=== PATIENT | female | born 1940 | race Caucasian/White ===

== ENCOUNTER → 2023-04-16 | Outpatient (CLI) | payer MEDICARE, OTHER ==
[2023-04-16 15:09] LABS: Partial Thromboplastin Time 25.6 sec (22.0-30.0)
[2023-04-16 20:53] LABS: Appearance,Urine Clear (Clear); Bilirubin,Urine Negative (Negative); Blood,Urine Negative (Negative); Color,Urine Yellow (Yellow); Ketones,Urine Negative (Negative); Nitrite,Urine Negative (Negative); Specific Gravity,Urine 1.008 (1.001-1.030); Urobilinogen,Urine 0.2 E.U./DL
[2023-04-16 21:30] LABS: Bacteria,Urine None Seen (None Seen)
[2023-04-16 21:56] LABS: Prothrombin Time 11.1 sec (10.0-12.5)
[2023-04-16 22:15] LABS: HCT 45.6 % (37.2-46.3); HGB 13.7 d/dL (12.0-15.0); MCH 24.9 pg (27.0-32.0); MCV 82.9 FL (80.0-97.0); Mean Platelet Volume 9.8 FL (9.5-12.2); NRBC Per 100 WBC 0 X 10*3/uL (0.00-0.01); Platelet Count 652 X 10*3/uL (140-440); RDW 16.9 % (11.5-14.5); WBC 11.79 X 10*3/uL (4.50-10.00)
[2023-04-17 07:58] LABS: ALT 20 U/L (8-44); AST 38 U/L (13-35); Albumin 4.6 d/dL (3.8-4.9); Albumin/Globulin Ratio 1.64 Ratio (1.60-3.17); Alkaline Phosphatase 120 U/L (41-126); BUN/Creat Ratio 22.22 Ratio (12.00-20.00); Calcium 10.3 mg/dL (8.7-10.3); Carbon Dioxide 25.5 mmol/L (21.6-31.8); Chloride 98 mmol/L (96-109); Globulin 2.8 d/dL (1.6-3.3); Glucose 86 mg/dL (70-110); Potassium 5.5 mmol/L (3.5-5.5); Sodium 135 mmol/L (135-145); Total Bilirubin <0.2 mg/dL (0.3-1.2); Total Protein 7.4 d/dL (6.2-8.2)
== END | disposition home or self-care (01) ==
LOC: LABPAT 13:49
PROVIDERS: ATTEND Orthopaedic Surgery
DX: Z01.812 Encounter for preprocedural laboratory examination (principal); M16.11 Unilateral primary osteoarthritis, right hip
CPT/HCPCS: 80053; 81001; 85027; 85610; 85730; 86850; 86900; 86901; 87070

== ENCOUNTER 2023-04-24 09:20 | Inpatient (IN) | payer MEDICARE, OTHER ==
[2023-04-19 10:19] VITALS: BMI 29.0
[~2023-04-24 09:20] MED LIST: ACETAMINOPHEN TAB 500 MG TAB PO PRN; DEXAMETHASONE SOD PHOSPHATE 4 MG/ML 1 ML VIAL IV ONE; GABAPENTIN 300 MG CAP PO PRN; HYDROmorphone 0.5 MG/0.5 ML SYRINGE IVP PRN; LIDOCAINE 1% (10MG/ML) FOR IV START INTRADERMA PRN; MELOXICAM 7.5 MG TAB PO PRN; ONDANSETRON 4 MG/2 ML VIAL IVP ONE; TRANEXAMIC 1,000 MG/100ML-NACL 1,000 MG in SALINE 1 100ML.BAG IVPB PRN
[2023-04-24] MEDS: LACTATED RINGERS 1,000 ML IV SCH (10:20)
[2023-04-24] MEDS ORDERED: MIDAZOLAM 2 MG/2 ML VIAL IVP ONE (10:37)
--- NOTE | 2023-04-24 10:45 | P.ANPRN ---
Procedure Note - Anesthesia - Nerve Block Performed Right Jovani Single Time Out Performed: Yes Date of Procedure: 04/24/23 Procedure Start Time: 10:37 Procedure Stop Time: 10:43 Location of Patient: PreOp Indication: Acute Post-Operative Pain, Requested by Surgeon Sedation Type: Sedate with meaningful contact maintained Preparation: Sterile Prep Position: Supine Needle Types: Pajunk Needle Gauge: 21 Ultrasound used to visualize needle placement: Yes Ultrasound used to observe medication spread: Yes Injectate: 0.5% Ropivacaine (see comment for volume) (15 ml + 10 ml NS + 4 mg Dexamethasone) Blood Aspirated: No Pain Paresthesia on Injection Noted: No Resistance on Injection: Normal Image Stored and Saved: Yes Events: Uneventful and Well Tolerated
[2023-04-24] MEDS ORDERED: PROPOFOL 10 MG/ML 20 ML VIAL IV ONE (11:47)
[2023-04-24] MEDS ORDERED: DEXAMETHASONE SOD PHOSPHATE 4 MG/ML 1 ML VIAL ONE (11:47)
[2023-04-24] MEDS ORDERED: PHENYLEPHRINE 10 MG/ML 5 ML VIAL ONE (11:47)
[2023-04-24] MEDS ORDERED: ROPIVACAINE 5 MG/ML 30 ML VIAL ONE (11:47)
[2023-04-24] MEDS ORDERED: TRANEXAMIC 1,000 MG/100ML-NACL PREMIX BAG ONE (11:47)
[2023-04-24] MEDS ORDERED: fentaNYL (PF) 50 MCG/ML 2 ML AMP ONE (11:47)
[2023-04-24] MEDS ORDERED: SODIUM CHLORIDE 0.9% (PF) 10 ML VIAL ONE (11:47)
[2023-04-24] MEDS ORDERED: ceFAZolin 1,000 MG in SODIUM CHLORIDE 0.9% 1,000 ML IRRIGATION ONE (11:50)
[2023-04-24] MEDS ORDERED: ROPIVACAINE 5 MG/ML 30 ML VIAL MISCELLANE ONE ×2 (11:54→13:00)
--- NOTE | 2023-04-24 13:00 | P.OP ---
Date of Procedure: 04/24/23 Preoperative Diagnosis: Severe osteoarthritis right hip Postoperative Diagnosis: Severe osteoarthritis right hip Procedure(s) Performed: Right total hip arthroplasty with a direct anterior approach Implants: [employer] Polarstem standard size 2 with a collar [employer] R3, 3 hole hemispherical acetabular shell, 48 mm [employer] Reflection 6.5 mm cancellus screw, 20 mm, 25 mm [employer] R3, XLPE 20 acetabular liner [employer]hew Oxinium femoral head 32 mm, +0 All components were press-fit. The articulation is Oxinium on polyethylene. Anesthesia: spinal Surgeon: Ralph Lucas Business Analyst Project Manager #1: Yana Nance Estimated Blood Loss (ml): 400 Pathology: none sent Condition: stable Disposition: PACU Indications for Procedure: After failure of conservative treatment we discussed the surgical and n onsurgical treatment options at length. Patient wishes to proceed with a total hip arthroplasty with a direct anterior approach. Complications specific to this procedure were discussed at length, including but not limited to infection, leg length discrepancy, dislocation, nerve injury, and fracture. Covid-19 was also discussed at length with the patient, and they are aware of the current policies and procedures. The patient was given the option of delaying surgery, but they elect to proceed knowing these risks. Patient is aware of all these complications and informed consent was obtained Operative Findings: The operative findings are consistent with severe osteoarthritis of the right hip Description of Procedure: The patient was seen and evaluated in the preoperative area and the consent was reviewed. The operative site was marked with a skin marker. The patient verified the procedure and operative site. A ROSENDO block was placed by anesthesia in the preoperative area. The patient was then brought to the operating room and given preoperative antibiotics intravenously. 1 g of Tranexamic acid was also given intravenously. A spinal anesthetic was administered by the anesthesia department. The patient was then placed on the Waucoma table with the bony prominences well-padded. The hip area was then prepped with a ChloraPrep solution and draped in the usual sterile fashion. A universal timeout was then performed, which confirmed the patient's name, surgical site, ALLERGIES, and procedure being performed on the consent. Next the incision site was located at 1 cm distal and 4 cm lateral to the anterior superior iliac spine. The skin and subcutaneous tissues were sharply incised. Incision was carefully dissected down to the fascia overlying the tensor fascia mick muscle. This fascia was then incised in line with the muscle fibers. Care was taken to stay laterally in order to avoid injuring the lateral femoral cutaneous nerve. Next, using blunt finger dissection, the tensor fascia mick muscle was dissected off its investing fascia. The muscle was then carefully retracted laterally with a cobra retractor over the lateral neck of the femur. Next, the circumflex vessels were identified and cauterized using the Aquamantis device. The anterior hip capsule was then exposed. The capsule was then opened and an inverted T fashion. The retractors were then placed intracapsularly. The retractors were maintained intracapsular throughout the procedure. The proximal femur was then visualized. Fluoroscopic x-rays were then taken in order to evaluate the preoperative leg lengths. A small amount of traction was placed on the leg. The femoral neck was then osteotomized at the appropriate level above the lesser trochanter. A small wedge of bone was then removed from the remaining femoral head. Next, using a corkscrew the femoral head was removed from the acetabulum. On gross visual inspection, the femoral head had complete loss of articular cartilage and multiple periarticular osteophytes. The femoral head was then measured. Attention was then turned to the acetabulum. The acetabulum was exposed and any remaining labrum was excised. Sequential reaming of the acetabulum was performed using fluoroscopic guidance until there was a good bed of bleeding cancellus bone. When the appropriate size was reached, a trial was then placed. The position and fit of the trial was checked with fluoroscopy. The trial was then removed. Then, using fluoroscopic guidance, the final implant was impacted at 20 of anteversion and 40 of abduction, and fully seated in the acetabulum. 2 screws were then placed in the acetabulum. Again fluoroscopy was used to check position of the screws. Next, the liner was then impacted, with a 20 elevated liner located in the anterior superior quadrant. Component locking was confirmed. Attention was then directed to the femur. With the aid of the Waucoma table, the femur was externally rotated to approximately 130, extended, and adducted under the opposite leg. A side hook was then placed under the proximal femur, and the side hook elevator was used to elevate the proximal femur while releasing the capsule. Retractors were then placed. A capsular release was performed, as well as a release of the conjoined tendon, which afforded excellent visualization of the proximal femur. Next, a box osteotome was used to lateralize the proximal femur. A merchandise collector was then used to locate the femoral canal. Sequential broaching was then performed with appropriate size which afforded excellent fixation in the proximal femur. A trial was then placed with appropriate head and neck, and the hip was gently reduced with the aid of the Waucoma table. Fluoroscopy was then used to check position of the components, as well as to evaluate the leg lengths and offset. The leg lengths and offset were measured as closely as possible to ensure stability of the hip. The hip was then gently dislocated and the trials were then removed. Final implants were then impacted and the hip was again reduced. Final fluoroscopic x-rays confirmed that the components were in anatomic position. The leg lengths and offset were measured and were found to coincide with the trial measurements. The hip was also taken through range of motion, and found to be stable. The hip was then copiously irrigated with antibiotic solution with pulsatile lavage. The hip was then irrigated with Irrisept solution. The soft tissues were then injected with a ropivacaine solution. A second dose of 1 g of Tranexamic acid was also given intravenously. The fascia was then closed with 2-0 strata fix suture. The subcutaneous tissue was closed with 3-0 Vicryl. The subcuticular tissue was closed with 3-0 strata fix suture. The skin was then closed with Exofin skin glue. After the glue and dried, and Optifoam silver impregnated dressing was applied. The patient was then transferred to the recovery room in stable condition. The customer support assistant MUMTAZ Person was required due to the complexity of surgery, and the need for skilled community relations assistant for positioning, draping, exposure, retraction, and closure of the wound.
[2023-04-24] MEDS ORDERED: LACTATED RINGERS 1,000 ML IV ONE (13:07)
--- NOTE | 2023-04-24 13:23 | FL ---
Intraoperative/procedural fluoroscopic services were provided. Total fluoroscopy time is 50.5 seconds with a total of 3 submitted images to PACS. Please see the operative/procedural note for further det ails. DAP: 1.9589 Gycm2
[2023-04-24] MEDS ORDERED: MAGNESIUM HYDROXIDE 2,400 MG/30 ML CUP PO PRN (13:26)
[2023-04-24] MEDS ORDERED: ONDANSETRON 4 MG/2 ML VIAL IVP PRN (13:26)
[2023-04-24] MEDS ORDERED: NALOXONE 0.4 MG/ML 1 ML VIAL IV PRN (13:26)
[2023-04-24] MEDS ORDERED: HYDROmorphone 0.5 MG/0.5 ML SYRINGE IVP PRN ×2 (13:26)
[2023-04-24] MEDS ORDERED: HYDROcodone/APAP 7.5-325MG 1 EACH TAB PO PRN (13:29)
[2023-04-24] MEDS: SODIUM CHLORIDE 0.9% 1,000 ML IV SCH (15:03)
[2023-04-24] MEDS: HYDROmorphone 0.5 MG/0.5 ML SYRINGE IVP PRN ×3 (16:47→23:31)
--- NOTE | 2023-04-24 16:53 | XR ---
EXAMINATION TYPE: XR Hip Limited RT DATE OF EXAM: 04/24/2023 4:44 PM CLINICAL INDICATION:Female, 82 years old with history of Status post hip surgery, assess surgical ali gnment; [facility] COMPARISON: None. TECHNIQUE: XR Hip Limited RT; hip was examined in the frontal projections FINDINGS: Post arthroplasty changes, hardware is intact, alignment is appropriate. No evidence of fra cture. Postoperative changes of the soft tissues with subcutaneous gas. No evidence of any acute osse ous pathology or joint dislocation. IMPRESSION: Hip arthroplasty with hardware intact and in appropriate alignment. No acute fracture.
--- NOTE | 2023-04-24 17:54 | P.CONS ---
History of Present Illness - Reason for Consult Consult date: 04/24/23 essentialthrombocytosis Requesting physician: Ralph Lucas - Chief Complaint hip pain - History of Present Illness Patient is an 82-year-old female with known thrombocytosis with Ashish 2 mutation, hypertension, dyslipidemia, and known left bundle branch block who presented for elective right total hip arthroplasty. Patient seen and examined at bedside. She is having some dizziness when she is moving around and feels slightly lightheaded. She denies any nausea. She has been using a walker prior to surgery due to instability with walking. She denies any chest pain or shortness of breath. She is otherwise been in her normal state of health and denies any cough, cold, fever, flu. Vital signs reviewed General: nontoxic, no distress, appears at stated age Derm: warm, dry Eyes: EOMI, no lid lag, anicteric sclera, pupils equal round reactive to light ENT: Nose and ears atraumatic, no thrush, no pharyngeal erythema Cardiovascular: S1S2 reg, no murmur, positive posterior tibial pulse bilateral, no edema, capillary refill less than 2 seconds Lungs: clear to auscultation bilateral, no rhonchi, no rales, no wheeze, no accessory muscle use Abdominal: soft, nontender to palpation, no guarding, no appreciable organomegaly, normal bowel sounds Ext: no gross muscle atrophy, muscle strength 5 out of 5 in all 4 extremities, no contractures Neuro: CN II-XII grossly intact, light touch intact all 4 extremities, finger to nose within normal limits, Psych: Alert, oriented, appropriate affect Assessment/Plan: 82-year-old female status post right total hip arthroplasty Essential thrombocytosis -Continue with aspirin 81 mg twice daily -Check CBC in a.m. Gait disturbance with stability -Fall precautions -PT OT -Patient was requiring a walker prior to admission Dyslipidemia Hypertension -Norvasc 5 mg twice daily -Pravachol 10 mg at night Hypothyroidism -Synthroid 75 g daily Imaging: None Data Review: Labs reviewed from preoperative evaluation hemoglobin 13.7, platelets 352, creatinine 0.9 Thank you for allowing us to participate in the care of this pleasant patient. Do not hesitate to contact us with questions. Someone can be reached from the [facility] hospitalist group all hours of the day at [phone] or via [employer]. This dictation was prepared using dragon medical voice recognition software. Though every attempt is made to correct errors during dictation some may still exist. Past Medical History Past Medical History: Blood Disorder, Hyperlipidemia, Hypertension, Osteoarthritis (OA), Skin Disorder, Thyroid Disorder Additional Past Medical History / Comment(s): ESSENTIAL THROMBOCYTOPENIA W/JAK2 MUTATION. CHRONIC UTI AND BLADDER LEAKAGE History of Any Multi-Drug Resistant Organisms: None Reported Additional Past Surgical History / Comment(s): PARTIAL THYROIDECTOMY. COLONOSCOPY. BILAT CATARACTS REMOVED WITH LENS IMPLANTS Past Anesthesia/Blood Transfusion Reactions: No Reported Reaction Past Psychological History: No Psychological Hx Reported Smoking Status: Never smoker Past Alcohol Use History: None Reported Past Drug Use History: None Reported - Past Family History Mother Family Medical History: Cancer Medications and Allergies Home Medications Medication Instructions Recorded Confirmed Type Acetaminophen [Tylenol Extra 500 mg PO Q4-6H PRN 04/19/23 04/24/23 History Strength] Aspirin [Adult Low Dose Aspirin EC] 81 mg PO BID 04/19/23 04/24/23 History Calcium Carb/Vitamin D3/Vit K1 1 tab PO DAILY 04/19/23 04/24/23 History [Viactiv 650 mg-12.5 Mcg Chew] Calcium Carbonate/Vitamin D3 2 tab PO DAILY 04/19/23 04/24/23 History [Calcium 500 mg Chewable Tablet] Cholecalciferol [Vitamin D3 (25 50 mcg PO DAILY 04/19/23 04/24/23 History Mcg = 1000 Iu)] Levothyroxine Sodium [Synthroid] 75 mcg PO DAILY 04/19/23 04/24/23 History Multivit with Calcium,Iron,Min 1 each PO DAILY 04/19/23 04/24/23 History [Women's Multivitamin] Naproxen Sodium [Aleve] 220 mg PO BID PRN 04/19/23 04/24/23 History Pravastatin Sodium [Pravachol] 10 mg PO HS 04/19/23 04/24/23 History Solifenacin Succinate 10 mg PO DAILY 04/19/23 04/24/23 History Sulfamethox-Tmp 400-80Mg [Bactrim 1 tab PO DAILY 04/19/23 04/24/23 History SS 400-80 mg] amLODIPine [Norvasc] 5 mg PO BID 04/19/23 04/24/23 History Aspirin 325 mg PO BID #60 tab 04/24/23 Rx HYDROcodone/APAP 7.5-325MG [[place] 1 - 2 tab PO Q6H PRN #32 tab 04/24/23 Rx 7.5-325] Sennosides [Senokot] 2 tab PO DAILY PRN #60 tablet 04/24/23 Rx Allergies Allergy/AdvReac Type Severity Reaction Status Date / Time No Known Allergies Allergy Verified 04/24/23 09:59 Physical Exam Osteopathic Statement: *. No significant issues noted on an osteopathic structural exam other than those noted in the History and Physical/Consult. Vitals: Vital Signs Temp Pulse Pulse Resp BP Pulse Ox 04/24/23 16:27 98.0 F 82 14 135/80 93 L 04/24/23 16:02 72 16 108/55 97 04/24/23 15:45 70 16 99/52 97 04/24/23 15:30 72 16 108/56 97 04/24/23 15:16 75 16 105/53 97 04/24/23 15:00 72 16 123/43 97 04/24/23 14:45 70 16 110/51 96 04/24/23 14:30 72 16 115/47 96 04/24/23 14:15 70 16 121/43 96 04/24/23 14:00 72 16 101/59 96 04/24/23 13:45 72 16 97/41 96 04/24/23 13:30 72 93/45 94 L 04/24/23 13:18 97.9 F 74 17 102/53 94 L 04/24/23 10:46 84 16 166/70 99 04/24/23 09:53 98.7 F 86 16 184/80 98 Intake and Output 04/24/23 04/24/23 04/24/23 06:59 14:59 22:59 Intake Total 1101 0 Output Total 400 Balance 701 0 Intake: IV 1101 0 Output: Estimated Blood Loss 400 Other: Weight 57.2 kg 57.2 kg
[2023-04-24] MEDS: amLODIPine 5 MG TAB PO SCH (19:57)
[2023-04-24] MEDS: ASPIRIN 325 MG TAB PO SCH (19:57)
[2023-04-24] MEDS: PRAVASTATIN SODIUM 20 MG TAB PO SCH (19:57)
[2023-04-24] MEDS: SENNOSIDES-DOCUSATE SODIUM 1 EACH TAB PO SCH (19:58)
[2023-04-25] MEDS: LACTATED RINGERS 1,000 ML IV SCH ×2 (04:12→21:27)
[2023-04-25] MEDS: SODIUM CHLORIDE 0.9% 1,000 ML IV SCH ×2 (04:12→18:55)
[2023-04-25] MEDS: LEVOTHYROXINE 75 MCG TAB PO SCH (05:58)
[2023-04-25] MEDS: HYDROmorphone 0.5 MG/0.5 ML SYRINGE IVP PRN ×2 (06:01→20:13)
[2023-04-25 09:16] LABS: Basophils # (A) 0.04 X 10*3/uL (0.00-0.10); Basophils % (A) 0.3 %; Eosinophils # (A) 0.02 X 10*3/uL (0.04-0.35); Eosinophils % (A) 0.2 %; HCT 38.2 % (37.2-46.3); HGB 11.7 d/dL (12.0-15.0); Lymphocytes # (A) 1.38 X 10*3/uL (0.90-5.00); Lymphocytes % (A) 10.8 %; MCH 24.8 pg (27.0-32.0); MCHC 30.6 d/dL (32.0-37.0); MCV 80.9 FL (80.0-97.0); Mean Platelet Volume 9.6 FL (9.5-12.2); Monocytes # (A) 1.03 X 10*3/uL (0.20-1.00); Monocytes % (A) 8.1 %; NRBC Per 100 WBC 0 X 10*3/uL (0.00-0.01); Neutrophils # (A) 10.21 X 10*3/uL (1.80-7.70); Neutrophils % (A) 79.9 %; Platelet Count 662 X 10*3/uL (140-440); RBC 4.72 X 10*6/uL (4.10-5.20); RDW 15.4 % (11.5-14.5); WBC 12.77 X 10*3/uL (4.50-10.00)
[2023-04-25] MEDS: HYDROcodone/APAP 7.5-325MG 1 EACH TAB PO PRN ×2 (09:51→17:25)
[2023-04-25] MEDS: TROSPIUM CHLORIDE 20 MG TABLET PO SCH ×2 (09:53→20:12)
[2023-04-25] MEDS: amLODIPine 5 MG TAB PO SCH ×2 (09:58→20:12)
[2023-04-25] MEDS: ASPIRIN 325 MG TAB PO SCH ×2 (09:58→20:11)
[2023-04-25] MEDS: SULFAMETHOX-TMP 400-80MG 1 EACH TAB PO SCH (09:58)
--- NOTE | 2023-04-25 10:07 | P.PN ---
Subjective Progress Note Date: 04/25/23 This is a 82-year-old female who is status post right total hip arthroplasty with direct anterior approach. This is postoperative day #1 and patient is seen and evaluated at bedside with Dr. Ralph Lucas. Patient states that the right hip is sore, but she was able to work with physical therapy today. Patient denies any fever/chills, numbness, tingling, abdominal pain, shortness of breath or chest pain. Objective - Vital Signs Vital signs: Vital Signs Temp 98.2 F 04/25/23 07:02 Pulse 80 04/25/23 07:02 Resp 18 04/25/23 07:02 BP 135/68 04/25/23 07:02 Pulse Ox 94 L 04/25/23 07:02 FiO2 Intake & Output 04/24/23 04/25/23 04/25/23 18:59 06:59 18:59 Intake Total 1101 Output Total 400 Balance 701 Weight 57.2 kg Intake: IV 1101 Output: Estimated Blood Loss 400 Other: Voiding Method Bedpan Diaper # Voids 1 3 - Exam Vital signs are stable. Patient is in no acute distress and is alert and oriented 3. Calf is soft and nontender to palpation. Dressing is clean, dry, and intact. Patient has full foot and ankle motion without pain or difficulty. Sensation intact. Neurovascular status and circulatory status are intact. - Labs CBC & Chem 7: 04/25/23 05:41 Labs: Abnormal Lab Results - Last 24 Hours (Table) 04/25/23 Range/Units 05:41 WBC 12.77 H (4.50-10.00) X 10*3/uL Hgb 11.7 L (12.0-15.0) d/dL MCH 24.8 L (27.0-32.0) pg MCHC 30.6 L (32.0-37.0) d/dL RDW 15.4 H (11.5-14.5) % Plt Count 662 H (140-440) X 10*3/uL Neutrophils # 10.21 H (1.80-7.70) X 10*3/uL Monocytes # 1.03 H (0.20-1.00) X 10*3/uL Eosinophils # 0.02 L (0.04-0.35) X 10*3/uL Assessment and Plan (1) Osteoarthritis of right hip Current Visit: Yes Status: Acute Code(s): M16.11 - UNILATERAL PRIMARY OSTEOARTHRITIS, RIGHT HIP SNOMED Code(s): 517803875683013 (2) S/P total hip arthroplasty Current Visit: Yes Status: Acute Code(s): Z96.649 - PRESENCE OF UNSPECIFIED ARTIFICIAL HIP JOINT SNOMED Code(s): 517957587724 Plan: Continue routine postop care and pain control. Continue anticoagulation with aspirin. Weightbearing as tolerated with a walker. Leave dressing in place for 7 days. Appreciate input from internal medicine. Patient will benefit from inpatient rehab. Anticipate discharge to [facility] in the next 24-48 hours.
[2023-04-25] MEDS ORDERED: PROCHLORPERAZINE INJ 10 MG/2 ML VIAL IVP PRN (13:38)
[2023-04-25] MEDS: ONDANSETRON 4 MG/2 ML VIAL IVP PRN (13:52)
--- NOTE | 2023-04-25 15:58 | P.PN ---
Subjective Progress Note Date: 04/25/23 (delayed charting seen at 1030) Patient is an 82-year-old female with known thrombocytosis with Ashish 2 mutation, hypertension, dyslipidemia, and known left bundle branch block who presented for elective right total hip arthroplasty. Patient seen and examined at bedside. She is having significant pain in her right hip replacement. She is having some nausea but no vomiting. No BM since surgery. Vital signs reviewed General: nontoxic, no distress, appears at stated age Cardiovascular: S1S2 reg, no murmur, positive posterior tibial pulse bilateral, Lungs: Decreased bs bilateral, no rhonchi, no rales , no accessory muscle use Ext: no gross muscle atrophy, no edema b/l lower extremities, no contractures Neuro: CN II-XI grossly intact, no focal neuro deficits Psych: Alert, oriented, appropriate affect Assessment/Plan: 82-year-old female status post right total hip arthroplasty Essential thrombocytosis -Aspirin 81 mg twice daily -Check CBC in 2 days Post-op nausea - zofran 4 mg IVP q 8 hours prn nausea - compazine 5mg OVP q 4 hours prn nausea. Gait disturbance with stability -Fall precautions -PT/OT -Patient was requiring a walker prior to admission Dyslipidemia Hypertension -Norvasc 5 mg twice daily -Pravachol 10 mg at night Hypothyroidism -Synthroid 75 g daily Imaging: None new Data Review: Chief complaints today include CBC which is remarkable for white blood cell count 12.77, hemoglobin 11.7, and platelets of 662 Thank you for allowing us to participate in the care of this pleasant patient. Do not hesitate to contact us with questions. Someone can be reached from the [facility] hospitalist group all hours of the day at [phone] or via [employer]. This dictation was prepared using [employer] voice recognition software. Though every attempt is made to correct errors during dictation some may still exist. Objective - Vital Signs Vital signs: Vital Signs Temp 98.3 F 04/25/23 14:00 Pulse 88 04/25/23 14:00 Resp 18 04/25/23 14:00 BP 157/77 04/25/23 14:00 Pulse Ox 95 04/25/23 14:00 FiO2 Intake & Output 04/24/23 04/25/23 04/25/23 18:59 06:59 18:59 Intake Total 1101 Output Total 400 Balance 701 Weight 57.2 kg Intake: IV 1101 Output: Estimated Blood Loss 400 Other: Voiding Method Bedpan Bedside Commode Diaper # Voids 1 3 - Labs CBC & Chem 7: 04/25/23 05:41 Labs: Abnormal Lab Results - Last 24 Hours (Table) 04/25/23 Range/Units 05:41 WBC 12.77 H (4.50-10.00) X 10*3/uL Hgb 11.7 L (12.0-15.0) d/dL MCH 24.8 L (27.0-32.0) pg MCHC 30.6 L (32.0-37.0) d/dL RDW 15.4 H (11.5-14.5) % Plt Count 662 H (140-440) X 10*3/uL Neutrophils # 10.21 H (1.80-7.70) X 10*3/uL Monocytes # 1.03 H (0.20-1.00) X 10*3/uL Eosinophils # 0.02 L (0.04-0.35) X 10*3/uL
[2023-04-25] MEDS: SENNOSIDES-DOCUSATE SODIUM 1 EACH TAB PO SCH (20:12)
[2023-04-25] MEDS: PRAVASTATIN SODIUM 20 MG TAB PO SCH (20:12)
[2023-04-26] MEDS: LEVOTHYROXINE 75 MCG TAB PO SCH (06:20)
[2023-04-26] MEDS: ASPIRIN 325 MG TAB PO SCH (09:10)
[2023-04-26] MEDS: TROSPIUM CHLORIDE 20 MG TABLET PO SCH ×2 (09:10→20:25)
[2023-04-26] MEDS: amLODIPine 5 MG TAB PO SCH ×2 (09:10→20:25)
[2023-04-26] MEDS: SULFAMETHOX-TMP 400-80MG 1 EACH TAB PO SCH (09:11)
[2023-04-26] MEDS: SODIUM CHLORIDE 0.9% 1,000 ML IV SCH (09:34)
--- NOTE | 2023-04-26 10:00 | CDI ---
Documentation Clarification Form Date: 04/26/2023 09:33:50 AM From: Lisa Gonzalez RN, CCDS Admit Date: 04/24/2023 01:26:00 PM Patient Name: Anayeli Saxena Visit Number: [id number] Discharge Date: ATTENTION: The Clinical Documentation Specialists (CDI) and [facility] Coding Staff appreciate your assistance in clarifying documentation. Please respond to the clarification below the line at the bottom and electronically sign. The CDI & [facility] Coding staff will review the response and follow-up if needed. Please note: Queries are made part of the Legal Health Record. If you have any questions, please contact the author of this message via ITS. Dr. Kristina New Post-op nausea is documented in the progress notes on 04/25/23 and patient had right total hip arthroplasty on 04/24/23. Additional clarification is requested regarding the relationship, if any, that exists between the diagnosis and the procedure. Patients Admitting Diagnosis: Severe osteoarthritis right hip Post-Operative Diagnosis: Same Procedure performed: Right total hip arthroplasty with a direct anterior approach History/Risk Factors: Essential thrombocytosis, hypertension, dyslipidemia, Clinical Indicators: 82-year-old female with failure of conservative treatment present for elective Right total hip arthroplasty with a direct anterior approach. 04/25 medicine progress note: She is having some nausea but no vomiting. No BM since surgery. 04/25 VS: (07:02) 135/68 80 18 98.2 94% RA 04/25 Labs: WBC 12.77 HGB 11.7 Neutrophils 10.21 Treatment: Zofran 4 mg IVP q 8 hours prn nausea Compazine 5mg IVP q 4 hours prn nausea. What relationship, if any, exists between the diagnosis of post-op nausea and the procedure? [ ] Post-op nausea is a complication of surgical procedure [ x ] Post-op nausea is an expected outcome of the surgical procedure [ ] Post-op nausea is related to patients co-morbid condition(s) of [insert co-morbid dxs] & not a complication of the procedure [ ] Other please specify ____ [ ] Unable to determine (Template Last Revised: August 2020) MTDD
--- NOTE | 2023-04-26 11:00 | P.PN ---
Subjective Progress Note Date: 04/26/23 Patient seen and examined at bedside. She is having significant pain in her right hip replacement. Denies any further nausea or vomiting No BM since surgery. Vital signs reviewed General: nontoxic, no distress, appears at stated age Cardiovascular: S1S2 reg, no murmur, positive posterior tibial pulse bilateral, Lungs: Decreased bs bilateral, no rhonchi, no rales , no accessory muscle use Ext: no gross muscle atrophy, no edema b/l lower extremities, no contractures Neuro: CN II-XI grossly intact, no focal neuro deficits Psych: Alert, oriented, appropriate affect Assessment/Plan: 82-year-old female status post right total hip arthroplasty Essential thrombocytosis -Aspirin 81 mg twice daily -Check CBC tomorrow Leukocytosis, reactive anticipated outcome of surgery -Repeat CBC tomorrow Post-op nausea - zofran 4 mg IVP q 8 hours prn nausea - compazine 5mg IVP q 4 hours prn nausea. Gait disturbance with stability -Fall precautions -PT/OT -Patient was requiring a walker prior to admission Dyslipidemia Hypertension -Norvasc 5 mg twice daily -Pravachol 10 mg at night Hypothyroidism -Synthroid 75 g daily Status post right total hip arthroplasty Constipation -Pain and bowel regimen per surgical service Imaging: None new Data Review: No new labs today Thank you for allowing us to participate in the care of this pleasant patient. Do not hesitate to contact us with questions. Someone can be reached from the [facility] hospitalist group all hours of the day at [phone] or via perfect serve. Objective - Vital Signs Vital signs: Vital Signs Temp 98.9 F 04/26/23 08:02 Pulse 75 04/26/23 08:02 Resp 20 04/26/23 10:52 BP 127/72 04/26/23 08:02 Pulse Ox 93 L 04/26/23 08:02 FiO2 Intake & Output 04/25/23 04/26/23 04/26/23 18:59 06:59 18:59 Other: Voiding Method Bedside Commode Bedside Commode # Voids 5 2 - Labs CBC & Chem 7: 04/25/23 05:41
--- NOTE | 2023-04-26 13:14 | P.PN ---
Subjective Progress Note Date: 04/26/23 This is a 82-year-old female who is status post right total hip arthroplasty with direct anterior approach. This is postoperative day #2 and patient is seen and evaluated at bedside today. Patient states that her pain is controlled and she denies any new complaints today. Objective - Vital Signs Vital signs: Vital Signs Temp 98.9 F 04/26/23 08:02 Pulse 75 04/26/23 08:02 Resp 20 04/26/23 10:52 BP 127/72 04/26/23 08:02 Pulse Ox 93 L 04/26/23 08:02 FiO2 Intake & Output 04/25/23 04/26/23 04/26/23 18:59 06:59 18:59 Other: Voiding Method Bedside Commode Bedside Commode # Voids 5 2 - Exam Vital signs are stable. Patient is in no acute distress and is alert and oriented 3. Calf is soft and nontender to palpation. Dressing is clean, dry, and intact. Patient has full foot and ankle motion without pain or difficulty. Sensation intact. Neurovascular status and circulatory status are intact. - Labs CBC & Chem 7: 04/25/23 05:41 Assessment and Plan (1) Osteoarthritis of right hip Current Visit: Yes Status: Acute Code(s): M16.11 - UNILATERAL PRIMARY OSTEOARTHRITIS, RIGHT HIP SNOMED Code(s): 613809942553429 (2) S/P total hip arthroplasty Current Visit: Yes Status: Acute Code(s): Z96.649 - PRESENCE OF UNSPECIFIED ARTIFICIAL HIP JOINT SNOMED Code(s): 238809321569 Plan: Continue routine postop care and pain control. Continue anticoagulation with aspirin. Weightbearing as tolerated with a walker. Leave dressing in place for 7 days. Appreciate input from internal medicine. Patient will benefit from inpatient rehab. Anticipate discharge to [facility] in the next 24-48 hours.
[2023-04-26] MEDS: HYDROcodone/APAP 7.5-325MG 1 EACH TAB PO PRN ×2 (15:51→22:44)
[2023-04-26] MEDS: PRAVASTATIN SODIUM 20 MG TAB PO SCH (20:25)
[2023-04-26] MEDS: SENNOSIDES-DOCUSATE SODIUM 1 EACH TAB PO SCH (20:25)
[2023-04-26] MEDS: ASPIRIN 81 MG PO SCH (20:25)
[2023-04-27] MEDS: LACTATED RINGERS 1,000 ML IV SCH (00:23)
[2023-04-27] MEDS: LEVOTHYROXINE 75 MCG TAB PO SCH (05:57)
[2023-04-27] MEDS: ASPIRIN 81 MG PO SCH (08:03)
[2023-04-27] MEDS: SULFAMETHOX-TMP 400-80MG 1 EACH TAB PO SCH (08:03)
[2023-04-27] MEDS: amLODIPine 5 MG TAB PO SCH (08:03)
[2023-04-27] MEDS: TROSPIUM CHLORIDE 20 MG TABLET PO SCH (08:03)
[2023-04-27] MEDS: ONDANSETRON 4 MG/2 ML VIAL IVP PRN (08:07)
[2023-04-27] MEDS: HYDROcodone/APAP 7.5-325MG 1 EACH TAB PO PRN ×2 (08:14→13:11)
[2023-04-27] MEDS ORDERED: bisacodyL 10 MG SUPP RECTAL STA (08:51)
[2023-04-27 09:14] VITALS: BP 151/77; PULSE 89; RESP 19; TEMP 97.3
--- NOTE | 2023-04-27 09:54 | P.DS ---
Providers Date of admission: 04/24/23 13:26 Expected date of discharge: 04/27/23 Attending physician: Ralph Lucas Consults: 04/24/23 13:26 Consult Physician Routine Consulting Provider: Kristina New Consult Reason/Comments: medical management and anticoagulation Do you want consulting provider notified?: Yes Primary care physician: Isa Pedroza MD - Discharge Diagnosis(es) (1) Osteoarthritis of right hip Current Visit: Yes Status: Acute (2) S/P total hip arthroplasty Current Visit: Yes Status: Acute Hospital Course: This is an 82-year-old female who presented to the office with history of degenerative arthritis of the right hip. She had failed outpatient conservative treatment. She wanted to discuss surgical intervention. After discussion and consideration the patient elects to proceed with total hip arthroplasty. The patient is admitted to [facility] On 04/24/2023 for total right hip arthroplasty was direct anterior approach. The procedure is performed without complication or sequelae. She is doing fairly well postoperatively. She is having difficulty with independent ambulation and ADLs. It is recommended she go to inpatient rehabilitation. On day of discharge she has not yet had a bowel movement but she is passing gas. The patient is discharged to inpatient rehabilitation on 04/27/2023 in good condition. Please see med rec for list of home medications. Patient Condition at Discharge: Good Plan - Discharge Summary Discharge Rx Participant: Yes New Discharge Prescriptions: New Aspirin 325 mg PO BID #60 tab Sennosides [Senokot] 2 tab PO DAILY PRN #60 tablet PRN Reason: Constipation HYDROcodone/APAP 7.5-325MG [Entiat 7.5-325] 1 - 2 tab PO Q6H PRN #32 tab PRN Reason: Pain Continue Naproxen Sodium [Aleve] 220 mg PO BID PRN PRN Reason: Pain Levothyroxine Sodium [Synthroid] 75 mcg PO DAILY Pravastatin Sodium [Pravachol] 10 mg PO HS Acetaminophen [Tylenol Extra Strength] 500 mg PO Q4-6H PRN PRN Reason: Pain Cholecalciferol [Vitamin D3 (25 Mcg = 1000 Iu)] 50 mcg PO DAILY amLODIPine [Norvasc] 5 mg PO BID Sulfamethox-Tmp 400-80Mg [Bactrim SS 400-80 mg] 1 tab PO DAILY Solifenacin Succinate 10 mg PO DAILY Multivit with Calcium,Iron,Min [Women's Multivitamin] 1 each PO DAILY Calcium Carbonate/Vitamin D3 [Calcium 500 mg Chewable Tablet] 2 tab PO DAILY Calcium Carb/Vitamin D3/Vit K1 [Viactiv 650 mg-12.5 Mcg Chew] 1 tab PO DAILY Discontinued Aspirin [Adult Low Dose Aspirin EC] 81 mg PO BID Discharge Medication List Acetaminophen [Tylenol Extra Strength] 500 mg PO Q4-6H PRN 04/19/23 [History] Calcium Carb/Vitamin D3/Vit K1 [Viactiv 650 mg-12.5 Mcg Chew] 1 tab PO DAILY 04/19/23 [History] Calcium Carbonate/Vitamin D3 [Calcium 500 mg Chewable Tablet] 2 tab PO DAILY 04/19/23 [History] Cholecalciferol [Vitamin D3 (25 Mcg = 1000 Iu)] 50 mcg PO DAILY 04/19/23 [History] Levothyroxine Sodium [Synthroid] 75 mcg PO DAILY 04/19/23 [History] Multivit with Calcium,Iron,Min [Women's Multivitamin] 1 each PO DAILY 04/19/23 [History] Naproxen Sodium [Aleve] 220 mg PO BID PRN 04/19/23 [History] Pravastatin Sodium [Pravachol] 10 mg PO HS 04/19/23 [History] Solifenacin Succinate 10 mg PO DAILY 04/19/23 [History] Sulfamethox-Tmp 400-80Mg [Bactrim SS 400-80 mg] 1 tab PO DAILY 04/19/23 [History] amLODIPine [Norvasc] 5 mg PO BID 04/19/23 [History] Aspirin 325 mg PO BID #60 tab 04/24/23 [Rx] HYDROcodone/APAP 7.5-325MG [Entiat 7.5-325] 1 - 2 tab PO Q6H PRN #32 tab 04/24/23 [Rx] Sennosides [Senokot] 2 tab PO DAILY PRN #60 tablet 04/24/23 [Rx] Follow up Appointment(s)/Referral(s): Ralph Lucas DO [Doctor of Osteopathic Medicine] - 05/07/23 1:45 pm (With Yana) Isa Pedroza MD [Primary Care Provider] - 1 Week (Swingbed please call for follow-up appointment.) Activity/Diet/Wound Care/Special Instructions: Weightbearing as tolerated with walker. Leave dressing intact. Dressing may be removed by home care nurse or by patient in 7 days. Then change dressing twice daily until follow up. May shower with initial dressing intact and after removal. If dressing become saturated, please remove. Please take aspirin 325mg twice daily for 30 days to prevent blood clots. Recommend use of compression stockings daily until follow up to help prevent swelling and blood clots. May remove at night before sleeping. Please follow-up with [facility] in 2 weeks and call with any questions or concerns, .
[2023-04-27 11:23] LABS: Basophils # (A) 0.08 X 10*3/uL (0.00-0.10); Basophils % (A) 0.6 %; Eosinophils # (A) 0.38 X 10*3/uL (0.04-0.35); HCT 34.8 % (37.2-46.3); HGB 10.6 g/dL (12.0-15.0); Lymphocytes # (A) 1.94 X 10*3/uL (0.90-5.00); Lymphocytes % (A) 15.3 %; MCH 24.6 pg (27.0-32.0); MCHC 30.5 g/dL (32.0-37.0); MCV 80.7 FL (80.0-97.0); Mean Platelet Volume 9.8 FL (9.5-12.2); Monocytes # (A) 0.78 X 10*3/uL (0.20-1.00); Monocytes % (A) 6.2 %; NRBC Per 100 WBC 0 X 10*3/uL (0.00-0.01); Neutrophils % (A) 74.4 %; Platelet Count 614 X 10*3/uL (140-440); RBC 4.31 X 10*6/uL (4.10-5.20); RDW 15.9 % (11.5-14.5); WBC 12.64 X 10*3/uL (4.50-10.00)
--- NOTE | 2023-04-27 11:35 | P.PN ---
Subjective Progress Note Date: 04/27/23 Patient seen and examined at bedside. She is having significant pain in her right hip replacement. Denies any further nausea or vomiting. No BM since surgery but passing gas. Vital signs reviewed General: nontoxic, no distress, appears at stated age Cardiovascular: S1S2 reg, no murmur, positive posterior tibial pulse bilateral, Lungs: Decreased bs bilateral, no rhonchi, no rales , no accessory muscle use Ext: no gross muscle atrophy, no edema b/l lower extremities, no contractures Neuro: CN II-XI grossly intact, no focal neuro deficits Psych: Alert, oriented, appropriate affect Assessment/Plan: 82-year-old female status post right total hip arthroplasty Essential thrombocytosis -Currently on aspirin 325 mg twice a day for DVT prophylaxis, consider decreasing to 81 mg twice a day Leukocytosis, reactive anticipated outcome of surgery Mild acute blood loss anemia, anticipated outcome of surgery Post-op nausea - zofran 4 mg IVP q 8 hours prn nausea - compazine 5mg IVP q 4 hours prn nausea. Gait disturbance with stability -Fall precautions -PT/OT -Patient was requiring a walker prior to admission Dyslipidemia Hypertension -Norvasc 5 mg twice daily -Pravachol 10 mg at night Hypothyroidism -Synthroid 75 g daily Status post right total hip arthroplasty Constipation -Pain and bowel regimen per surgical service Imaging: None new Data Review: WBC 12.64, hemoglobin 10.6, platelets 614 Home medications reviewed and reconciled Patient is otherwise medically optimized for discharge Thank you for allowing us to participate in the care of this pleasant patient. Do not hesitate to contact us with questions. Someone can be reached from the [facility] hospitalist group all hours of the day at [phone] or via perfect serve. Objective - Vital Signs Vital signs: Vital Signs Temp 97.3 F L 04/27/23 08:18 Pulse 89 04/27/23 08:18 Resp 19 04/27/23 08:18 BP 151/77 04/27/23 08:18 Pulse Ox 94 L 04/27/23 08:18 FiO2 Intake & Output 04/26/23 04/27/23 04/27/23 18:59 06:59 18:59 Intake Total 600 Balance 600 Intake: Oral 600 Other: Voiding Method Bedside Commode Toilet # Voids 4 1 - Labs CBC & Chem 7: 04/27/23 06:52 Labs: Abnormal Lab Results - Last 24 Hours (Table) 04/27/23 Range/Units 06:52 WBC 12.64 H (4.50-10.00) X 10*3/uL Hgb 10.6 L (12.0-15.0) g/dL Hct 34.8 L (37.2-46.3) % MCH 24.6 L (27.0-32.0) pg MCHC 30.5 L (32.0-37.0) g/dL RDW 15.9 H (11.5-14.5) % Plt Count 614 H (140-440) X 10*3/uL Neutrophils # 9.40 H (1.80-7.70) X 10*3/uL Eosinophils # 0.38 H (0.04-0.35) X 10*3/uL
== END 2023-04-27 13:24 | DRG 470 ==
LOC: OR 09:20 → 4SSUR 13:26
PROVIDERS: ADMIT Orthopaedic Surgery; ATTEND Orthopaedic Surgery
PROC: 0SR906A Replacement of Right Hip Joint with Oxidized Zirconium on Polyethylene Synthetic Substitute, Uncemented, Open Approach (ICD-10-PCS; principal; 2023-04-24 10:55)
DX: M16.11 Unilateral primary osteoarthritis, right hip (principal); D72.829 Elevated white blood cell count, unspecified; D75.839 Thrombocytosis, unspecified; E03.9 Hypothyroidism, unspecified; E78.5 Hyperlipidemia, unspecified; I10 Essential (primary) hypertension; I44.7 Left bundle-branch block, unspecified; K59.00 Constipation, unspecified; Z96.1 Presence of intraocular lens; Z79.82 Long term (current) use of aspirin; Z79.890 Hormone replacement therapy; Z79.899 Other long term (current) drug therapy
CPT/HCPCS: 64447; 73501; 85025